=== PATIENT | female | born 1985 | race Caucasian/White ===

== ENCOUNTER 2020-08-25 23:24 | Inpatient (IN) | payer MEDICAID, OTHER ==
[~2020-08-25] VITALS: Ht 152.4 cm; Wt 91.6 kg
[~2020-08-25 23:24] MED LIST: WEIGHT LOSS MED
[2020-08-25 23:33] VITALS: BP_SYST 126
[2020-08-26] MEDS ORDERED: MORPHINE 2 MG/ML INJ. SYRINGE IVP ONE
[2020-08-26] MEDS ORDERED: ONDANSETRON HCL 4 MG/2 ML VIAL IVP ONE
[2020-08-26 00:31] LABS: BASOPHILS % (AUTO) 0.6 % (0.0-2.0); EOSINOPHILS % (AUTO) 0.2 % (0.0-4.0); HEMATOCRIT 40.2 % (36-48); HEMOGLOBIN 13.4 g/dL (12.0-16.0); LYMPHOCYTES # (AUTO) 0.9 K/uL (1.0-5.5); LYMPHOCYTES % (AUTO) 17.2 % (20.5-51.5); MEAN CORPUSCULAR HEMOGLOBIN 29 pg (27-31); MEAN CORPUSCULAR HGB CONC 33 % (32-36); MEAN CORPUSCULAR VOLUME 87 fL (79.0-98.0); MONOCYTES # (AUTO) 0.5 K/uL (0.0-1.0); MONOCYTES % (AUTO) 9.5 % (1.7-9.3); NEUTROPHILS # (AUTO) 3.9 K/uL (1.8-7.7); NEUTROPHILS % (AUTO) 72.5 % (40.0-70.0); PLATELET COUNT (AUTO) 237 K/uL (130-430); RED BLOOD CELL COUNT(AUTO) 4.62 MIL/uL (4.2-6.2); RED CELL DISTRIBUTION WIDTH 13.6 % (9.0-15.0); WHITE BLOOD COUNT (AUTO) 5.4 K/uL (4.8-10.8)
[2020-08-26 00:46] LABS: CALCIUM 7.7 mg/dL (8.4-11.0); CREATININE 0.72 mg/dL (0.55-1.30); POTASSIUM 3.1 mmol/L (3.5-5.1)
[2020-08-26 00:52] LABS: TOTAL BILIRUBIN 0.7 mg/dL (0.0-1.0)
[2020-08-26 00:52] LABS: BILIRUBIN,URINE 1+ (NEGATIVE); BLOOD, URINE 3+ (NEGATIVE); CLARITY/URINE SL CLOUDY (CLEAR); COLOR,URINE YELLOW (YELLOW); GLUCOSE,URINE NEGATIVE (NEGATIVE); KETONES,URINE 1+ (NEGATIVE); LEUKOCYTE ESTERASE ,URINE NEGATIVE (NEGATIVE); NITRITE, URINE NEGATIVE (NEGATIVE); PROTEIN URINE 3+ (NEGATIVE)
[2020-08-26 01:09] LABS: BACTERIA,URINE FEW /HPF (None Seen); RBC,URINE 20-50 /HPF (0-3); WBC,URINE 0-3 /HPF (0-3)
[2020-08-26] MEDS ORDERED: DIPHENOXYLATE HCL/ATROP SULF 2.5 MG TAB PO ONE (01:15)
[2020-08-26] MEDS ORDERED: PANTOPRAZOLE SODIUM 40 MG/VIAL (PROTONIX) IVP ONE ×2 (01:15→10:00)
[2020-08-26] MEDS ORDERED: KCL 20 mEq in 100 mL (PREMIX) 100 ML IV ONE (01:45)
[2020-08-26] MEDS ORDERED: NACL 0.9% 1,000 ML IV ONE ×2 (01:45)
[2020-08-26] MEDS ORDERED: ACETAMINOPHEN 325 MG TABLET PO ONE (03:45)
[2020-08-26] MEDS ORDERED: ACETAMINOPHEN 325 MG TABLET ONE (03:58)
[2020-08-26] MEDS ORDERED: KETOROLAC TROMETHAMINE 15 MG VIAL IVP PRN ×2 (04:30→11:00)
[2020-08-26 05:08] VITALS: BP_SYST 120
[2020-08-26 05:19] LABS: THYROID STIMULATING HORMONE 0.39 uIu/mL (0.36-3.74)
[2020-08-26] MEDS: D5/0.45 NS 1,000 ML IV SCH ×3 (05:41→17:48)
[2020-08-26] MEDS ORDERED: SIMETHICONE 80 MG TAB.CHEW PO PRN (06:00)
[2020-08-26] MEDS: ONDANSETRON HCL 4 MG/2 ML VIAL IVP PRN ×2 (06:33→15:19)
[2020-08-26] MEDS ORDERED: MORPHINE 2 MG/ML INJ. SYRINGE ONE ×2 (06:37→15:20)
[2020-08-26] MEDS: MORPHINE 2 MG/ML INJ. SYRINGE IVP PRN ×2 (06:39→15:35)
[2020-08-26] MEDS: metroNIDAZOLE 500 mg/NS 100 ML IV SCH ×3 (07:51→21:46)
[2020-08-26 08:00] VITALS: BP_SYST 107
[2020-08-26 11:40] LABS: BASOPHILS % (AUTO) 0.3 % (0.0-2.0); EOSINOPHILS # (AUTO) 0.1 K/uL (0.0-0.4); EOSINOPHILS % (AUTO) 1.8 % (0.0-4.0); HEMATOCRIT 35.7 % (36-48); HEMOGLOBIN 11.8 g/dL (12.0-16.0); LYMPHOCYTES # (AUTO) 1.2 K/uL (1.0-5.5); MEAN CORPUSCULAR HEMOGLOBIN 29 pg (27-31); MEAN CORPUSCULAR HGB CONC 33 % (32-36); MEAN CORPUSCULAR VOLUME 88 fL (79.0-98.0); MONOCYTES # (AUTO) 0.5 K/uL (0.0-1.0); MONOCYTES % (AUTO) 13.3 % (1.7-9.3); NEUTROPHILS # (AUTO) 1.8 K/uL (1.8-7.7); NEUTROPHILS % (AUTO) 51.6 % (40.0-70.0); PLATELET COUNT (AUTO) 187 K/uL (130-430); RED BLOOD CELL COUNT(AUTO) 4.05 MIL/uL (4.2-6.2); RED CELL DISTRIBUTION WIDTH 13.4 % (9.0-15.0); WHITE BLOOD COUNT (AUTO) 3.6 K/uL (4.8-10.8)
[2020-08-26 11:48] LABS: CREATININE 0.61 mg/dL (0.55-1.30); PHOSPHORUS 2.3 mg/dL (2.7-4.5); POTASSIUM 3.4 mmol/L (3.5-5.1)
[2020-08-26 12:54] VITALS: BP_SYST 111
[2020-08-26 16:50] VITALS: BP_SYST 134
[2020-08-26] MEDS ORDERED: MORPHINE 2 MG/ML INJ. SYRINGE IVP PRN (17:00)
[2020-08-26] MEDS ORDERED: POTASSIUM CHLORIDE 20 MEQ TAB.PRT.SR PO ONE (17:00)
[2020-08-26 19:12] LABS: BILIRUBIN,URINE NEGATIVE (NEGATIVE); BLOOD, URINE 2+ (NEGATIVE); CLARITY/URINE CLEAR (CLEAR); COLOR,URINE YELLOW (YELLOW); GLUCOSE,URINE NEGATIVE (NEGATIVE); KETONES,URINE NEGATIVE (NEGATIVE); LEUKOCYTE ESTERASE ,URINE NEGATIVE (NEGATIVE); NITRITE, URINE NEGATIVE (NEGATIVE); PROTEIN URINE NEGATIVE (NEGATIVE)
[2020-08-26 19:59] LABS: BACTERIA,URINE FEW /HPF (None Seen); RBC,URINE 0-3 /HPF (0-3); WBC,URINE NONE SEEN /HPF (0-3)
[2020-08-26 20:00] VITALS: BP_SYST 118
[2020-08-27] VITALS: BP_SYST 117
[2020-08-27] MEDS: metroNIDAZOLE 500 mg/NS 100 ML IV SCH (05:14)
[2020-08-27] MEDS: D5/0.45 NS 1,000 ML IV SCH (05:18)
[2020-08-27 06:41] LABS: BASOPHILS % (AUTO) 0.2 % (0.0-2.0); EOSINOPHILS # (AUTO) 0.1 K/uL (0.0-0.4); EOSINOPHILS % (AUTO) 2.8 % (0.0-4.0); HEMATOCRIT 35.3 % (36-48); HEMOGLOBIN 11.6 g/dL (12.0-16.0); LYMPHOCYTES # (AUTO) 1.8 K/uL (1.0-5.5); LYMPHOCYTES % (AUTO) 42.5 % (20.5-51.5); MEAN CORPUSCULAR HEMOGLOBIN 29 pg (27-31); MEAN CORPUSCULAR HGB CONC 33 % (32-36); MEAN CORPUSCULAR VOLUME 88 fL (79.0-98.0); MONOCYTES # (AUTO) 0.5 K/uL (0.0-1.0); MONOCYTES % (AUTO) 11.6 % (1.7-9.3); NEUTROPHILS # (AUTO) 1.8 K/uL (1.8-7.7); NEUTROPHILS % (AUTO) 42.9 % (40.0-70.0); PLATELET COUNT (AUTO) 215 K/uL (130-430); RED BLOOD CELL COUNT(AUTO) 3.99 MIL/uL (4.2-6.2); RED CELL DISTRIBUTION WIDTH 13.7 % (9.0-15.0); WHITE BLOOD COUNT (AUTO) 4.2 K/uL (4.8-10.8)
[2020-08-27 06:54] LABS: ALBUMIN 2.5 g/dL (3.4-4.8); CALCIUM 7.5 mg/dL (8.4-11.0); CREATININE 0.59 mg/dL (0.55-1.30); PHOSPHORUS 2.5 mg/dL (2.7-4.5); POTASSIUM 3.9 mmol/L (3.5-5.1); TOTAL BILIRUBIN 0.2 mg/dL (0.0-1.0)
[2020-08-27] MEDS ORDERED: CIPR-260 PO (08:35)
[2020-08-27] MEDS ORDERED: METR500T PO (08:35)
[2020-08-27] MEDS ORDERED: PANTOPRAZOLE SODIUM 40 MG/VIAL (PROTONIX) IVP SCH (09:00)
[2020-08-27 09:01] VITALS: BP_SYST 139
[2020-08-27] MEDS: ONDANSETRON HCL 4 MG/2 ML VIAL IVP PRN (09:14)
[2020-08-27 11:25] LABS: HCG,QUAL RESULT NEGATIVE (NEGATIVE)
[2020-08-27 12:09] VITALS: BP_SYST 119
[2020-08-27 12:38] VITALS: BP_SYST 119
== END 2020-08-27 13:10 | disposition home or self-care (01) | DRG 249 ==
LOC: SED 23:24 → SMU 08-26 04:19
PROVIDERS: ADMIT Family Medicine; ATTEND Family Medicine
DX: A08.4 Viral intestinal infection, unspecified (principal); E44.1 Mild protein-calorie malnutrition; E86.0 Dehydration; E87.6 Hypokalemia; Z20.822 Contact with and (suspected) exposure to COVID-19; E66.9 Obesity, unspecified; Z91.041 Radiographic dye allergy status; Z90.49 Acquired absence of other specified parts of digestive tract; Z98.891 History of uterine scar from previous surgery; Z68.39 Body mass index [BMI] 39.0-39.9, adult
CPT/HCPCS: 36415; 71045; 76376; 80048; 80053; 81000; 82272; 83690; 83735; 83880; 84100; 84439; 84443; 84703; 85025; 89055; 96361; 96365; 96375; 99285; C9113; J1885; J1956; J2270; J2405; J3480; J3490; J7030

== ENCOUNTER 2021-02-13 03:09 | Emergency (ER) | payer MEDICAID, OTHER ==
[~2021-02-13] VITALS: Ht 152.4 cm; Wt 90.7 kg
[~2021-02-13 03:09] MED LIST changes: +CIPR-260 PO; +METR500T PO; -WEIGHT LOSS MED
[2021-02-13 03:14] VITALS: BP_SYST 149
--- NOTE | 2021-02-13 03:21 | NUR ---
Patient to ER bed 6 to gown for evaluation. Side rails up.
--- NOTE | 2021-02-13 03:23 | NUR ---
Patient BIB by family/friend. C/O cough and congestion x 1 week, Patient reported had cough and congestion for a week, test COVID-16 on 02/05/21 (Negative PCR and Rapid). A/O,X4, cough, pressure sinus area, congestion, bilateral rib pain, radiate upper back, oxygen sat 100 % RA.
--- NOTE | 2021-02-13 03:37 | NUR ---
ER Dr. Olivas at bedside examining patient.
[2021-02-13] MEDS ORDERED: LIDOCAINE VISCOUS 2%, 15 ML UDC MM ONE (04:00)
[2021-02-13] MEDS ORDERED: KETOROLAC TROMETHAMINE 30 MG VIAL IM ONE (04:00)
[2021-02-13] MEDS ORDERED: LORATADINE 10 MG TABLET PO ONE (04:00)
[2021-02-13] MEDS ORDERED: guaiFENesin 200 MG/CODEINE 20 MG/ 10 ML UDC PO ONE (04:00)
[2021-02-13] MEDS ORDERED: CODE10LI PO (04:32)
[2021-02-13] MEDS ORDERED: IBUP-1969 PO (04:32)
[2021-02-13] MEDS ORDERED: LORA10TA7 PO (04:32)
[2021-02-13 04:50] VITALS: BP_SYST 149
--- NOTE | 2021-02-13 04:50 | NUR ---
Patient given written and verbal discharge instructions and verbalizes understanding. ER MD discussed with patient the results and treatment provided. Patient in stable condition. ID arm band removed. Rx of Codeine phosphate/Guaifenesin , Ibuprofen and Loratadine given. Patient educated on pain management and to follow up with PMD. Pain Scale 1/10. Opportunity for questions provided and answered. Medication side effect fact sheet provided.
== END 2021-02-13 04:50 | disposition home or self-care (01) ==
LOC: SED 03:09
DX: J06.9 Acute upper respiratory infection, unspecified (principal); Z88.8 Allergy status to other drugs, medicaments and biological substances; Z79.899 Other long term (current) drug therapy
CPT/HCPCS: 81025; 96372; 99284; J1885; J2001

== ENCOUNTER 2021-12-07 05:31 | Observation (INO) | payer OTHER ==
[2021-12-04 12:31] LABS: BILIRUBIN,URINE NEGATIVE (NEGATIVE); BLOOD, URINE 2+ (NEGATIVE); CLARITY/URINE CLEAR (CLEAR); COLOR,URINE YELLOW (YELLOW); GLUCOSE,URINE NEGATIVE (NEGATIVE); KETONES,URINE NEGATIVE (NEGATIVE); LEUKOCYTE ESTERASE ,URINE NEGATIVE (NEGATIVE); NITRITE, URINE NEGATIVE (NEGATIVE); PROTEIN URINE 3+ (NEGATIVE); UROBILINOGEN,URINE 0.2 (0.2-1.0)
[2021-12-04 12:49] LABS: INR 0.9 (0.8-1.2); PROTHROMBIN TIME 9.5 SECS (9.5-12.5)
[2021-12-04 12:51] LABS: BASOPHILS % (AUTO) 0.4 % (0.0-2.0); EOSINOPHILS # (AUTO) 0.1 K/uL (0.0-0.4); EOSINOPHILS % (AUTO) 1.2 % (0.0-4.0); HEMATOCRIT 40.5 % (36-48); LYMPHOCYTES # (AUTO) 1.7 K/uL (1.0-5.5); LYMPHOCYTES % (AUTO) 24.2 % (20.5-51.5); MEAN CORPUSCULAR VOLUME 87 fL (79.0-98.0); MONOCYTES # (AUTO) 0.5 K/uL (0.0-1.0); MONOCYTES % (AUTO) 6.8 % (1.7-9.3); NEUTROPHILS # (AUTO) 4.7 K/uL (1.8-7.7); NEUTROPHILS % (AUTO) 67.4 % (40.0-70.0); PLATELET COUNT (AUTO) 281 K/uL (130-430); RED BLOOD CELL COUNT(AUTO) 4.63 MIL/uL (4.2-6.2); RED CELL DISTRIBUTION WIDTH 13.6 % (9.0-15.0)
[2021-12-04 12:53] LABS: CALCIUM 9.3 mg/dL (8.4-11.0); CREATININE 0.65 mg/dL (0.55-1.30); POTASSIUM 3.9 mmol/L (3.5-5.1)
[2021-12-04 13:26] LABS: BACTERIA,URINE RARE /HPF (None Seen); HYALINE CASTS, URINE 0-10 /LPF (None Seen); WBC,URINE 0-3 /HPF (0-3)
[2021-12-04 13:57] LABS: HEMOGLOBIN 13.7 g/dL (12.0-16.0); MEAN CORPUSCULAR HEMOGLOBIN 30 pg (27-31); MEAN CORPUSCULAR HGB CONC 33 % (32-36)
[~2021-12-07] VITALS: Ht 152.4 cm; Wt 97.5 kg
[~2021-12-07 05:31] MED LIST changes: +CODE10LI PO; +IBUP-1969 PO; +LORA10TA7 PO
[2021-12-07] MEDS ORDERED: NACL 0.9% 1,000 ML IV SCH (09:45)
[2021-12-07] MEDS ORDERED: IPRATROPIUM/ALBUTEROL SULFATE 3 ML AMPUL.NEB (DUONEB) INH PRN (10:00)
[2021-12-07 10:32] LABS: BASOPHILS % (AUTO) 0.4 % (0.0-2.0); EOSINOPHILS % (AUTO) 0.2 % (0.0-4.0); HEMATOCRIT 37.6 % (36-48); LYMPHOCYTES # (AUTO) 1.5 K/uL (1.0-5.5); LYMPHOCYTES % (AUTO) 13.9 % (20.5-51.5); MEAN CORPUSCULAR VOLUME 87 fL (79.0-98.0); MONOCYTES # (AUTO) 0.6 K/uL (0.0-1.0); MONOCYTES % (AUTO) 5.7 % (1.7-9.3); NEUTROPHILS # (AUTO) 8.4 K/uL (1.8-7.7); NEUTROPHILS % (AUTO) 79.8 % (40.0-70.0); PLATELET COUNT (AUTO) 291 K/uL (130-430); RED BLOOD CELL COUNT(AUTO) 4.31 MIL/uL (4.2-6.2); RED CELL DISTRIBUTION WIDTH 13.3 % (9.0-15.0); WHITE BLOOD COUNT (AUTO) 10.5 K/uL (4.8-10.8)
[2021-12-07] MEDS ORDERED: ACETAMINOPHEN 500 MG TABLET PO ONE ×2 (11:15→13:30)
[2021-12-07] MEDS ORDERED: ACETAMINOPHEN 500 MG TABLET ONE ×2 (11:21→12:50)
[2021-12-07 14:30] VITALS: BP_SYST 128
--- NOTE | 2021-12-07 14:30 | NUR ---
Miss Mcmahon has been admitted to room 112-A. She has been assessed as indicated. She is experiencing some anxiety around her OR visit. She is not in distress. She is not SOB. She has no facial swelling. She tolerates PO intake well. She has been noted to be both pleasant and cooperative
[2021-12-07] MEDS ORDERED: POTASSIUM CHLORIDE 20 MEQ TAB.PRT.SR PO PRN (15:15)
[2021-12-07] MEDS ORDERED: MUPIROCIN 2% TOPICAL OINTMENT 22 GM NS PRN (15:15)
[2021-12-07] MEDS ORDERED: ACETAMINOPHEN 325 MG TABLET PO PRN ×2 (15:15→15:45)
[2021-12-07] MEDS ORDERED: MAGNESIUM SULFATE 50 ML IV PRN (15:15)
[2021-12-07] MEDS ORDERED: DOCUSATE SODIUM 100 MG CAPSULE PO PRN (15:15)
[2021-12-07] MEDS ORDERED: MORPHINE 2 MG/ML INJ. SYRINGE IVP PRN (15:15)
[2021-12-07] MEDS ORDERED: ZOLPIDEM TARTRATE 5 MG TABLET PO PRN (15:15)
[2021-12-07] MEDS ORDERED: ONDANSETRON HCL 4 MG/2 ML VIAL IVP PRN (15:15)
--- NOTE | 2021-12-07 15:47 | NUR ---
CONSULTATION PAGED/CALLED Reason for Consultation: [] poss. seizure vs. syncope Person Who was Notified: []talked to Dr. Ruiz Consulting Physician: [] Bhanu Sanchez Fire Prevention Research Engineer Specialty: []Neuro Ordering Physician: []lily Chino
--- NOTE | 2021-12-07 15:50 | NUR ---
CONSULTATION PAGED/CALLED Reason for Consultation: []severe hypoxia Person Who was Notified: []Kevin Consulting Physician: [] Dr. Cedeno Outreach Librarian Specialty: []Pulmonary Ordering Physician: []Dr. Chin
[2021-12-07] MEDS: NORMAL SALINE 5 ML DISP.SYRIN IVF SCH ×2 (17:13→22:44)
[2021-12-07 20:40] VITALS: BP_SYST 117
[2021-12-07] MEDS: LORazepam 2 MG/ML VIAL IVP PRN (22:41)
[2021-12-08 00:12] VITALS: BP_SYST 110
[2021-12-08] MEDS ORDERED: ACETAMINOPHEN 325 MG TABLET ONE (10:34)
[2021-12-08 12:00] VITALS: BP_SYST 149
[2021-12-08] MEDS: LORazepam 2 MG/ML VIAL IVP PRN (13:18)
[2021-12-08 14:33] VITALS: BP_SYST 120
[2021-12-08 16:01] VITALS: BP_SYST 134
[2021-12-08 16:16] VITALS: BP_SYST 134
[2021-12-08] MEDS ORDERED: LORA-259 PO (16:41)
[2021-12-08] MEDS ORDERED: LORA-258 PO (16:49)
== END 2021-12-08 16:40 | disposition home or self-care (01) ==
LOC: SMU 05:31 → SDS 05:31 → STU 05:31 → EDSTATUS 07:30 → STU 10:00 → SMU 10:00 → SDS 14:02 → SMU 14:02 → UNDOADMIN 14:03 → SMU 14:03 → STU 14:07 → SDS 12-08 16:40 → STU 12-08 16:40
PROVIDERS: ADMIT Orthopaedic Surgery Sports Medicine; ATTEND Orthopaedic Surgery Sports Medicine
DX: R56.9 Unspecified convulsions (principal); Z20.822 Contact with and (suspected) exposure to COVID-19; R55 Syncope and collapse; S83.241A Other tear of medial meniscus, current injury, right knee, initial encounter; R09.02 Hypoxemia; I49.9 Cardiac arrhythmia, unspecified; E66.9 Obesity, unspecified; T36.1X5A Adverse effect of cephalosporins and other beta-lactam antibiotics, initial encounter; Z90.49 Acquired absence of other specified parts of digestive tract; Z88.8 Allergy status to other drugs, medicaments and biological substances; Z79.01 Long term (current) use of anticoagulants; Z79.899 Other long term (current) drug therapy; X58.XXXA Exposure to other specified factors, initial encounter; Y93.89 Activity, other specified; Y92.89 Other specified places as the place of occurrence of the external cause; Y99.8 Other external cause status
CPT/HCPCS: 80048; 81000; 84703; 85025 ×2; 85610; 85730; 36415 ×2; 96374; 96375; 85379; 93005; 93306; 95816; 71045; 36600; 82803; 87426; 96376; U0003; J2060 ×2; J2270; G0378 ×2